=== PATIENT | male | born 1965 | race Caucasian/White ===

== ENCOUNTER 2017-09-05 22:02 | Emergency (ER) | payer BC ==
[2017-09-05] MEDS ORDERED: Ondansetron 4 MG Tab PO ONE (22:14)
[2017-09-05] MEDS ORDERED: Morphine 4 MG/ML Syringe IM ONE (22:14)
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
[2017-09-05] MEDS: Morphine 2 MG/ML Syringe ONE ×2 (23:00→23:45)
[2017-09-05] MEDS ORDERED: Morphine 4 MG/ML Syringe IVPUSH ONE (23:12)
[2017-09-05] MEDS ORDERED: Sodium Chloride 0.9% 1,000 ML IV ONE (23:12)
[2017-09-05] MEDS ORDERED: Morphine 2 MG/ML Syringe ONE (23:42)
[2017-09-06] MEDS ORDERED: Morphine 2 MG/ML Syringe ONE (00:24)
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
== END 2017-09-06 01:00 ==
LOC: MW.ED 22:02
DX: S82.141A Displaced bicondylar fracture of right tibia, initial encounter for closed fracture (principal); V29.88XA Motorcycle rider (driver) (passenger) injured in other specified transport accidents, initial encounter
CPT/HCPCS: 36415; 73560; 80053; 85025; 85610; 93005; 96361; 96374; 96376; 99285; A9270; J2270; J7040